=== PATIENT | female | born 1955 | race Caucasian/White ===

== ENCOUNTER 2021-12-27 22:09 | Emergency (ER) | payer MEDICARE, SELFPAY ==
--- NOTE | ~2021-12-27 | XR_ITS ---
EXAMINATION: XR CHEST CLINICAL INFORMATION: Chest pain COMPARISON: Chest x-ray 10/10/2012 TECHNIQUE: Frontal view of the chest was obtained. FINDINGS: Cardiac silhouette is normal in size. The lungs are well aerated. There is no lobar consolidation. No pleural effusion or pneumothorax. XR/XR chest 1V IMPRESSION: No acute pulmonary pathology.
--- NOTE | 2021-12-27 22:22 | ECG_ITS ---
Test Reason : CHEST PAIN Blood Pressure : / mmHG Vent. Rate : 096 BPM Atrial Rate : 096 BPM P-R Int : 132 ms QRS Dur : 072 ms QT Int : 342 ms P-R-T Axes : 070 007 057 degrees QTc Int : 432 ms Normal sinus rhythm Nonspecific ST abnormality Abnormal ECG When compared with ECG of 10-OCT-2012 19:21, No significant change was found Referred By: Generic ED Physician Electronically Signed By:FAMILIA GAINES
[2021-12-27 22:32] VITALS: BP 165/80; PULSE 101; RESP 16; TEMP 36.7; O2SAT 100; BMI 22.1
[2021-12-27 22:49] LABS: MANUAL DIFF FLAG NO
[2021-12-27 22:51] LABS: Basophils Percent Auto 0.4 % (0-2); Eosinophils Absolute Auto 0.2 X10*3/uL (0.0-0.4); Eosinophils Percent Auto 2.5 % (0-4); Hematocrit 41.9 % (37.0-47.0); Hemoglobin 13.6 g/dl (12.0-16.0); Imm Gran Abs Auto 0.02 X10*3/uL (0.00-0.03); Imm Gran Pct Auto 0.2 % (0.0-0.4); Lymphocytes Absolute Auto 3.1 X10*3/uL (1.2-4.9); Lymphocytes Percent Auto 36.8 % (20-40); Mean Corpuscular HGB Conc 32.5 g/dl (31.0-35.0); Mean Corpuscular Hemoglobin 27.6 pg (27.0-33.0); Mean Platelet Volume 8.8 fL (9.4-12.3); Monocytes Absolute Auto 0.6 X10*3/uL (0.1-1.2); Monocytes Percent Auto 7.5 % (2-11); Neutrophils Absolute Auto 4.5 x10*3/uL (2.0-8.3); Neutrophils Percent Auto 52.6 % (45-73); Platelet Count 282 X10*3/uL (160-400); Red Blood Count 4.93 X10*6/uL (4.20-5.50); Red Cell Distribution Width 14.9 % (11.0-16.0); White Blood Count 8.5 X10*3/uL (4.8-10.8)
[2021-12-27 23:03] LABS: Anion Gap 10 (12-20); Blood Urea Nitrogen 16 mg/dL (9-16); Calcium 9.5 mg/dL (8.4-10.2); Carbon Dioxide 31 mmol/L (22-29); Chloride 103 mmol/L (96-108); Estimated Glomerular Filt Rate > 60; Glucose Random 171 mg/dL (60-115); Potassium 3.3 mmol/L (3.3-5.1); Sodium 141 mmol/L (135-145)
[2021-12-27 23:09] LABS: Troponin-I High Sensitivity < 3.5 ng/L (<3.5-17.0)
--- NOTE | 2021-12-27 23:45 | ED.CHESTPAIN ---
HPI - Chest Pain General Chief Complaint: Chest Pain Stated Complaint: chest pain Time Seen by Provider: 12/27/21 23:44 Source: patient Mode of arrival: ambulatory Limitations: no limitations History of Present Illness HPI narrative: Patient is 66 years old very active thin built worse with history of hyperlipidemia no history of coronary artery disease around 20:00 while watching TV notice sharp chest pain in mid chest lasted for a few seconds no nausea no vomiting no diaphoresis no shortness of breath patient never had similar pain in the past patient walks every day and never noticed any pain in the chest never had any cardiac evaluation done in the past Related Data Previous Rx's Medication Instructions Recorded aspirin 81 mg capsule 81 mg PO DAILY #30 cap 12/28/21 Allergies Allergy/AdvReac Type Severity Reaction Status Date / Time Penicillins [PENICILLINS] Allergy Unknown RASH Unverified 05/18/20 14:55 Sulfa (Sulfonamide Allergy Rash Verified 12/27/21 22:35 Antibiotics) codeine [CODEINE] AdvReac Intermediate NAUSEA Unverified 05/18/20 14:55 Review of Systems Review of Systems: Yes all other systems are reviewed and are negative [facility] Social History Social History Advance Directives: No Physical Exam Vital Signs: Vital Signs: Last Vital Signs Temp 98.3 F 12/28/21 00:11 Pulse 86 12/28/21 01:18 Resp 12 12/28/21 00:11 BP 135/68 12/28/21 01:18 Pulse Ox 99 12/28/21 01:18 BMI result Body Mass Index 22.1 Appearance: Alert. Oriented X3. No acute distress. Eyes: No pallor or icterus s ENT: Pharynx normal. Oral Mucosa moist Neck: Normal inspection. Neck supple. CVS: Normal heart rate and rhythm. Pulses normal. Respiratory: No respiratory distress. Equal air entry bilateral, no wheezing/rales/rhonchi Abdomen: Soft and nontender. Bowel sounds are present, Skin: Skin warm and dry. Normal skin color. Normal skin turgor. Extremities: No lower extremity edema. No calf tenderness Neuro: Oriented X 3. MDM - Chest Pain MDM Narrative Medical decision making narrative: Patient atypical chest pain sharp pain in mid chest lasted only for few seconds with 2 sets of troponin negative EKG negative at this time patient does not have any chest pain will discharge patient home advised to follow with detasseler advised take baby aspirin daily Lab Data Attestation: I reviewed the patient's lab results. Result diagrams: 12/27/21 22:45 12/27/21 22:45 Labs: Lab Results 12/27/21 12/27/21 12/27/21 Range/Units 22:45 22:45 22:45 WBC 8.5 (4.8-10.8) X10*3/uL RBC 4.93 (4.20-5.50) X10*6/uL Hgb 13.6 (12.0-16.0) g/dl Hct 41.9 (37.0-47.0) % MCV 85.0 (80.0-98.0) fL MCH 27.6 (27.0-33.0) pg MCHC 32.5 (31.0-35.0) g/dl RDW 14.9 (11.0-16.0) % Plt Count 282 (160-400) X10*3/uL MPV 8.8 L (9.4-12.3) fL Immature Gran % (Auto) 0.2 (0.0-0.4) % Neut % (Auto) 52.6 (45-73) % Lymph % (Auto) 36.8 (20-40) % Buchanan % (Auto) 7.5 (2-11) % Eos % (Auto) 2.5 (0-4) % Baso % (Auto) 0.4 (0-2) % Lymph # (Auto) 3.1 (1.2-4.9) X10*3/uL Buchanan # (Auto) 0.6 (0.1-1.2) X10*3/uL Eos # (Auto) 0.2 (0.0-0.4) X10*3/uL Baso # (Auto) 0.0 (0.0-0.2) X10*3/uL Abs Immat Gran (auto) 0.02 (0.00-0.03) X10*3/uL Absolute Neuts (auto) 4.5 (2.0-8.3) x10*3/uL Absolute Nucleated RBC 0.000 (0.0-0.012) X10*3/uL Nucleated RBC % (auto) 0.0 (0.0-0.2) /100WBC Sodium 141 (135-145) mmol/L Potassium 3.3 (3.3-5.1) mmol/L Chloride 103 (96-108) mmol/L Carbon Dioxide 31 H (22-29) mmol/L Anion Gap 10 L (12-20) BUN 16 (9-16) mg/dL Creatinine 0.88 (0.5-1.4) mg/dL Estim Creat Clear Calc 55.0 Estimated GFR > 60 Random Glucose 171 H (60-115) mg/dL Calcium 9.5 (8.4-10.2) mg/dL Troponin I High Sens < 3.5 (<3.5-17.0) ng/L 12/28/21 Range/Units 00:45 WBC (4.8-10.8) X10*3/uL RBC (4.20-5.50) X10*6/uL Hgb (12.0-16.0) g/dl Hct (37.0-47.0) % MCV (80.0-98.0) fL MCH (27.0-33.0) pg MCHC (31.0-35.0) g/dl RDW (11.0-16.0) % Plt Count (160-400) X10*3/uL MPV (9.4-12.3) fL Immature Gran % (Auto) (0.0-0.4) % Neut % (Auto) (45-73) % Lymph % (Auto) (20-40) % Buchanan % (Auto) (2-11) % Eos % (Auto) (0-4) % Baso % (Auto) (0-2) % Lymph # (Auto) (1.2-4.9) X10*3/uL Buchanan # (Auto) (0.1-1.2) X10*3/uL Eos # (Auto) (0.0-0.4) X10*3/uL Baso # (Auto) (0.0-0.2) X10*3/uL Abs Immat Gran (auto) (0.00-0.03) X10*3/uL Absolute Neuts (auto) (2.0-8.3) x10*3/uL Absolute Nucleated RBC (0.0-0.012) X10*3/uL Nucleated RBC % (auto) (0.0-0.2) /100WBC Sodium (135-145) mmol/L Potassium (3.3-5.1) mmol/L Chloride (96-108) mmol/L Carbon Dioxide (22-29) mmol/L Anion Gap (12-20) BUN (9-16) mg/dL Creatinine (0.5-1.4) mg/dL Estim Creat Clear Calc Estimated GFR Random Glucose (60-115) mg/dL Calcium (8.4-10.2) mg/dL Troponin I High Sens < 3.5 (<3.5-17.0) ng/L ECG Data ECG #1: Attestation: I personally reviewed and interpreted this ECG as follows: Interpretation: Normal sinus rhythm heart rate 96 beats per minute normal interval normal axis no acute ST wave changes impression no acute ischemia Scores Heart Score History: -0- slightly suspicious ECG: -0- normal Age: -2- > or = 65 Risk factory: -1- 1 or 2 risk factors Troponin: -0- < or = normal limit Score: 3 Risk: 1.7% Discharge Plan Discharge Clinical Impression: Chest pain Patient Disposition: Home, Self-Care Instructions: Chest Pain (ED) Additional Instructions: Take baby aspirin daily Follow with PCP/cardiology for further workup including the stress and echo Report to the ER if recurrence of the chest pain /worsening of chest pain/shortness of breath Prescriptions: New aspirin 81 mg capsule 81 mg PO DAILY Qty: 30 0RF
[2021-12-28 00:11] VITALS: BP 151/60; PULSE 97; RESP 12; TEMP 36.8; O2SAT 100
[2021-12-28 01:11] LABS: Troponin-I High Sensitivity < 3.5 ng/L (<3.5-17.0)
[2021-12-28 01:18] VITALS: BP 135/68; PULSE 86; O2SAT 99
[2021-12-28 01:36] VITALS: BP 155/57; PULSE 95; RESP 18; O2SAT 100
[2021-12-28] MEDS: Aspirin 81 MG TAB.CHEW PO (01:37)
--- NOTE | 2021-12-28 01:40 | PC.NURSE ---
Pt denies any CP currently Pt medicated per OCT Pt tolerated well Will continue to monitor
== END 2021-12-28 01:41 | disposition home or self-care (01) ==
PROVIDERS: Emergency Provider Internal Medicine; PCP Internal Medicine
DX: R07.9 Chest pain, unspecified (principal)
CPT/HCPCS: 36415; 71045; 80048; 84484; 85025; 93005; 99283; 99284

== ENCOUNTER 2022-10-17 10:04 | Outpatient (REF) | payer MEDICARE, SELFPAY ==
[2022-10-17 10:24] LABS: MANUAL DIFF FLAG NO
[2022-10-17 10:55] LABS: Basophils Percent Auto 0.4 % (0-2); Eosinophils Percent Auto 0.4 % (0-4); Hematocrit 47.1 % (37.0-47.0); Hemoglobin 15.1 g/dl (12.0-16.0); Imm Gran Abs Auto 0.02 X10*3/uL (0.00-0.03); Imm Gran Pct Auto 0.2 % (0.0-0.4); Lymphocytes Absolute Auto 1.5 X10*3/uL (1.2-4.9); Lymphocytes Percent Auto 16.4 % (20-40); Mean Corpuscular HGB Conc 32.1 g/dl (31.0-35.0); Mean Corpuscular Hemoglobin 27.4 pg (27.0-33.0); Mean Corpuscular Volume 85.3 fL (80.0-98.0); Mean Platelet Volume 9.6 fL (9.4-12.3); Monocytes Absolute Auto 0.4 X10*3/uL (0.1-1.2); Monocytes Percent Auto 4.2 % (2-11); Neutrophils Absolute Auto 7.1 x10*3/uL (2.0-8.3); Neutrophils Percent Auto 78.4 % (45-73); Platelet Count 300 X10*3/uL (160-400); Red Blood Count 5.52 X10*6/uL (4.20-5.50); Red Cell Distribution Width 14.7 % (11.0-16.0)
[2022-10-17 11:17] LABS: C Reactive Protein < 0.10 mg/dL (< or = 0.50)
[2022-10-17 11:36] LABS: Erythrocyte Sedimentation Rate 2 MM/HR (0-20)
[2022-10-19 14:53] LABS: Immunoglobulin A 126 mg/dL (70-320)
[2022-10-22 12:59] LABS: Gliadin Deamidated IgA Ab <1.0 U/mL; Gliadin Deamidated IgG Ab <1.0 U/mL
[2022-10-22 13:39] LABS: Transglutaminase Ab IgG <1.0 U/mL; Transglutaminase IgA <1.0 U/mL
[2022-10-23 17:14] LABS: Endomysial IgA Antibody Negative (Negative)
== END 2022-10-17 10:05 | disposition home or self-care (01) ==
LOC: HO.LAB 10:04
PROVIDERS: PCP Internal Medicine; Visit Provider Internal Medicine
DX: R19.7 Diarrhea, unspecified (principal)
CPT/HCPCS: 36415; 82784; 85025; 85652; 86140; 86231; 86258; 86364

== ENCOUNTER 2022-10-21 11:17 | Outpatient (REF) | payer MEDICARE, SELFPAY ==
[2022-10-21 13:06] LABS: Leukocytes Stool Qualitative NEGATIVE (NEGATIVE)
[2022-10-21 13:44] LABS: CDiff Gene PCR NEGATIVE (Negative)
[2022-10-21 13:45] LABS: Adenovirus F 40/41 Not Detected (Not Detect.); Astrovirus Not Detected (Not Detect.); Campylobacter Not Detected (Not Detect.); Cryptosporidium Not Detected (Not Detect.); Cyclospora cayetanensis Not Detected (Not Detect.); E. coli EAEC Not Detected (Not Detect.); E. coli EPEC Not Detected (Not Detect.); E. coli ETEC Not Detected (Not Detect.); E. coli STEC Not Detected (Not Detect.); Entamoeba histolytica Not Detected (Not Detect.); Giardia lamblia Not Detected (Not Detect.); Norovirus GI/GII Not Detected (Not Detect.); Plesiomonas shigelloides Not Detected (Not Detect.); Rotavirus A Not Detected (Not Detect.); Salmonella Not Detected (Not Detect.); Sapovirus Not Detected (Not Detect.); Shigella sp./EIEC Not Detected (Not Detect.); Vibrio Not Detected (Not Detect.); Vibrio Cholerae Not Detected (Not Detect.); Yersinia enterocolitica Not Detected (Not Detect.)
[2022-10-27 15:24] LABS: Calprotectin, Fecal 58 mcg/g
== END 2022-10-21 11:18 | disposition home or self-care (01) ==
LOC: HO.LNP 11:17
PROVIDERS: Visit Provider Internal Medicine
DX: R19.7 Diarrhea, unspecified (principal)
CPT/HCPCS: 83993; 87493; 87507; 89055

== ENCOUNTER 2022-10-30 09:38 | Day surgery (SDC) | payer MEDICARE, SELFPAY ==
[2022-10-30 09:46] VITALS: BMI 20.2
[2022-10-30] MEDS: Lactated Ringers 1,000 ML 50 ML IVCONT (09:53)
[2022-10-30 10:05] VITALS: BP 161/71; PULSE 106; RESP 18; TEMP 36.6; O2SAT 96
[2022-10-30 11:32] VITALS: BP 97/38; PULSE 77; RESP 16; TEMP 36.3; O2SAT 99
--- NOTE | 2022-10-30 11:38 | PM.OP ---
Brief Operative Note Date of Service: 10/30/22 Pre-op diagnosis: GERD, Change in Bowela Post-op diagnosis: other (Hiatal hernia, Diverticulosis) Procedure: EGD with biopsies, Colonoscopy to the cecum and TI with biopsies Surgeon: Bryce Albert Anesthesia: MAC Was an Senior Network Administrator used for this Procedure?: No Estimated blood loss (mL): 2.0 Pathology: other (A. Descending duodenum B. EG Junction at 35cm C. Ascending colon D. Descending colon) Condition: stable Disposition: PACU
[2022-10-30 11:56] VITALS: BP 143/72; PULSE 79; RESP 18; TEMP 36.4; O2SAT 100
--- NOTE | 2022-10-30 13:36 | OP_ITS ---
SURGEON: Bryce Albert MD INDICATIONS: The patient presents for evaluation of gastroesophageal reflux and change in bowel habits. Full consent has been obtained from her for this, including risks of bleeding and perforation. PREOPERATIVE DIAGNOSIS: POSTOPERATIVE DIAGNOSIS: PROCEDURE PERFORMED: Esophagogastroduodenoscopy with biopsies, and colonoscopy to the cecum and terminal ileum with biopsies. ESTIMATED BLOOD LOSS: COMPLICATIONS: ANESTHESIA: Monitored anesthesia care. ASSISTANTS: SPECIMENS: PREOPERATIVE DIAGNOSES: Gastroesophageal reflux and change in bowel habits. POSTOPERATIVE DIAGNOSES: Gastroesophageal reflux and change in bowel habits, hiatal hernia, rule out Coello's esophagus, rule out celiac disease, rule out microscopic colitis, diverticulosis, and internal hemorrhoids. DESCRIPTION OF PROCEDURE: The patient was placed in the left lateral decubitus position. The Olympus video gastroscope was passed in the posterior oropharynx and upper esophagus under direct vision. The scope was passed slowly to the distal esophagus. The gastroesophageal junction appeared at 38 cm. There was some slight irregularity consistent with reflux and possibly small areas of Coello's mucosa. There were no lesions nor ulcerations. The scope entered into the stomach. There is a small to moderate-sized hiatal hernia. The hiatal hernia mucosa appeared normal. The scope was advanced to the pylorus, and the duodenum was cannulated to the descending portion. The duodenum including the bulb appeared normal without any mass or ulceration. Biopsies were obtained from the second and third portions of the duodenum. The scope was withdrawn back in the stomach. The gastric antrum and body appeared normal with good peristalsis. The scope was retroflexed visualizing the proximal stomach carefully, which appeared normal, without any sign of mass or ulceration. The scope was straightened and withdrawn back in the esophagus. Biopsies were obtained at the EG junction at 35 cm. Proximal to that, the esophageal mucosa appeared normal. The scope was withdrawn from the patient. She was turned around for the colonoscopy. The digital rectal exam revealed no abnormalities. The Olympus video pediatric colonoscope was entered into the rectum and advanced easily to the cecum. Once in the cecum, I did identify a normal-appearing cecal pouch with appendiceal orifice and a normal-appearing ileocecal valve. The terminal ileum was cannulated and appeared normal. The scope was withdrawn back in the colon. The entire cecum and ileocecal valve appeared normal. The scope was slowly withdrawn assessing all mucosal surfaces carefully. Preparation was excellent. I did not visualize any polyps, colitis nor angiodysplasia. Random biopsies were obtained of the ascending and descending colon. There was a mild amount of sigmoid diverticulosis. In the rectum, the scope was retroflexed visualizing internal hemorrhoids, but no other pathology. The rectal mucosa appeared normal. The scope was straightened and withdrawn from the patient. She tolerated both procedures well and was returned to the recovery area in stable condition. IMPRESSION: 1. Hiatal hernia, gastroesophageal reflux, rule out Coello's esophagus. 2. Rule out celiac disease. 3. Diverticulosis. 4. Rule out microscopic colitis. 5. Internal hemorrhoids. PLAN: The results of the biopsies will be checked. At this point, she does report that her previous issue with the change in bowel habits has completely resolved and thing seem to back to normal. In regard to the upper endoscopy findings with the hiatal hernia and some reflux, and her associated ENT symptoms, I will give her a trial of Omeprazole 20 mg daily for 1 to 2 months to see if that makes a difference for her in that regard. She will be followed up in the office. I would recommend a repeat colonoscopy in 10 years for further screening, although that point she will be just about 78 and we would need to take her clinical condition into account. She was advised not to use any aspirin nor NSAIDs for 1 week. This has been discussed with her . MD HARDEEP Juárez/HDIRAJ / [id number] MTDD
== END 2022-10-30 13:16 | disposition home or self-care (01) ==
PROVIDERS: PCP Internal Medicine; Visit Provider Internal Medicine
PROC: 0DJD8ZZ Inspection of Lower Intestinal Tract, Via Natural or Artificial Opening Endoscopic (ICD-10-PCS; CPT 45378; principal; 2022-10-30 11:10)
DX: R19.7 Diarrhea, unspecified (principal); K57.30 Diverticulosis of large intestine without perforation or abscess without bleeding; K64.8 Other hemorrhoids; K21.9 Gastro-esophageal reflux disease without esophagitis; K44.9 Diaphragmatic hernia without obstruction or gangrene; E78.00 Pure hypercholesterolemia, unspecified; Z79.899 Other long term (current) drug therapy; Z88.0 Allergy status to penicillin; Z88.2 Allergy status to sulfonamides; Z88.8 Allergy status to other drugs, medicaments and biological substances; Z87.891 Personal history of nicotine dependence
CPT/HCPCS: 45380; 43239; 88305; J2250

== ENCOUNTER 2025-04-18 10:22 | Outpatient (AMB) | payer MEDICARE, SELFPAY ==
--- OUTSIDE RECORDS SUMMARY | 2025-04-18 11:24 | XMS_ITS | Patient Health Record ---
Author Organization [facility] Address [address] [place] [id number] Care Team Providers Care Principal Network Architect Name Role Phone Lawrence Márquez MD Primary Care Provider Unavailab Gerri Diaz Unavailable [phone] Allergies Allergen (clinical drug ingredient) Drug/Non Drug Allergy documented on EMR Reaction Allergy Type Onset Date Status Penicillin Unknown Drug Allergy Active Substance with sulfonamide structure and antibacterial mechanism of action (substance) Sulfa Antibiotics Unknown Drug Allergy Active codeine Codeine Unknown Drug Allergy Active Reason For Referral No Information Medications Medication SIG (Take, Route, Frequency, Duration) Notes Start Date End Date Status Garlic Active Atorvastatin Calcium 10 MG TAKE 1 TABLET BY MOUTH EVERY DAY Oral for 90 Active Levocetirizine Dihydrochloride 5 MG TAKE 1 TABLET BY MOUTH DAILY UP TO TWICE A DAY Oral for 30 Active Cranberry Active Multivitamin Adult A ctive Immunizations Vaccine Route Administration Date Status Comme nts Influenza Unknown 05/02/2022 Administered Social History Tobacco Use: Social History Observation Description Date Details (start date - stop date) Former Smoker NA - NA Tobacco Use/Smoking Question Answer Notes Patient is a former smoker How long has it been since you last smoked? > 10 years Alcohol Screen Question Answer Notes Did you have a drink contain ing alcohol in the past year? Yes How often did you have a dri nk containing alcohol in the past year? 2 to 4 times a month (2 points) How many drinks did you have on a typical day when you were drinking in the past year? 1 or 2 drinks (0 point) How often did you have 6 or more drinks on one occasion in the past year? Never (0 point) Points 2 Interpretation Negative Section Notes: Nonsmoker; no sig alcohol Nonsmoker; no sig alcohol Nonsmoker; no sig alcohol Problems Problem Type SNOMED Code ICD Code Onset Dates Problem Status W/U Status Risk Notes Problem Diverticular disease of colon (713799536) Diverticulosis of large intestine without perforation or abscess without bleeding (K57.30) Active confirmed Problem 45012709 Heartburn (R12) Active confirmed Problem Gastroesophageal reflux disease (081423959) Gastroesophageal reflux disease (K21.9) Active confirmed Problem 28322816 Diarrhea, unspecified type (R19.7) Active confirmed Plan Of Treatment Pending Test Test Name Order Date CRP 10/17/2022 CBC w DIFF 10/17/2022 SED RATE (ESR) 10/17/2022 CELIAC PANEL #10 10/17/2022 STOOL WBC 10/17/2022 C DIFFICILE RFLX PCR 10/17/2022 CALPROTECTIN, STOOL 10/17/2022 Future Test Test Name Order Date COLONOSCOPY 10/17/2022 UPPER GI ENDOSCOPY 10/20/2022 Insurance Providers Payer Name Payer Address Payer Phone Subscriber Number Group Number Insured Name Patient Relationship to Insured Coverage Start Date Coverage End Date MEDICARE OF [place] [address] [place] [address] [phone] [id number] CRISTINA VERMA Self - patient is the insured MED[employer] ATT[employer] CLAIMS [address] [place] [address] [phone] [id number] CRISTINA VERMA Self - patient is the insured Medical (General) History Medical History History ICD Code Denies [place],DM,CVA,Lung disease,renal dise ase Allergies Hypercholesterolemia Reports a negative colonoscopy in approx 2014 Surgical History Surgery Date(Month/Year)
== END 2025-04-18 10:28 | disposition home or self-care (01) ==
LOC: HO.HMGAL 10:22
PROVIDERS: PCP Internal Medicine; Visit Provider Registered Nurse Emergency
DX: J30.89 Other allergic rhinitis (principal)
CPT/HCPCS: 95117; 95165

== ENCOUNTER 2025-05-04 10:40 | Outpatient (AMB) | payer MEDICARE, SELFPAY | END 2025-05-04 10:47 | disposition home or self-care (01) | LOC: HO.HMGAL 10:40 | PROVIDERS: PCP Internal Medicine; Visit Provider Registered Nurse Emergency | DX: J30.89 Other allergic rhinitis (principal) | CPT/HCPCS: 95117; 95165 ==

== ENCOUNTER 2025-05-16 11:11 | Outpatient (AMB) | payer MEDICARE, SELFPAY ==
--- OUTSIDE RECORDS SUMMARY | 2025-05-16 15:02 | XMS_ITS | Patient Health Record ---
Author Organization [facility] Address [address] [place] [address] Care Team Providers Care Database Operator Name Role Phone Lawrence Márquez MD Primary Care Provider Unavailab Gerri Diaz Unavailable [phone] Allergies Allergen (clinical drug ingredient) Drug/Non Drug [...] Risk Notes Problem Diverticular disease of colon (983133982) Diverticulosis of large intestine without perforation or abscess without bleeding (K57.30) Active confirmed Problem 43915328 Heartburn (R12) Active confirmed Problem Gastroesophageal reflux disease (668997321) Gastroesophageal reflux disease (K21.9) Active confirmed Problem 47072901 Diarrhea, unspecified type (R19.7) Active confirmed Plan [...] Date [place]ARE OF [place] [address] [place] [address] [id number] CRISTINA VERMA Self - patient is the insured MEDEX ATTN CLAIMS [address] [place] [address] [id number] CRISTINA VERMA Self - patient is the insured Medical (General) History Medical History History ICD Code Denies [place],DM,CVA,Lung disease,renal dise ase Allergies Hypercholesterolemia Reports a negative colonoscopy in approx 2014 Surgical History Surgery Date(Month/Year)
== END 2025-05-16 11:24 | disposition home or self-care (01) ==
LOC: HO.HMGAL 11:11
PROVIDERS: PCP Internal Medicine; Visit Provider Registered Nurse Emergency
DX: J30.89 Other allergic rhinitis (principal)
CPT/HCPCS: 95117; 95165

== ENCOUNTER 2025-06-06 11:50 | Outpatient (AMB) | payer MEDICARE, SELFPAY ==
--- OUTSIDE RECORDS SUMMARY | 2025-06-06 14:22 | XMS_ITS | Patient Health Record ---
Author Organization [facility] Address [address] [place] [id number] Care Team Providers Care Rn Corrections Name Role Phone Lawrence Márquez MD Primary Care Provider Unavailab Gerri Diaz Unavailable [phone] Allergies Allergen (clinical drug ingredient) Drug/Non Drug [...] Risk Notes Problem Diverticular disease of colon (246188178) Diverticulosis of large intestine without perforation or abscess without bleeding (K57.30) Active confirmed Problem 92128497 Heartburn (R12) Active confirmed Problem Gastroesophageal reflux disease (779369303) Gastroesophageal reflux disease (K21.9) Active confirmed Problem 14490969 Diarrhea, unspecified type (R19.7) Active confirmed Plan [...] Date [place] [address] [facility] [place] [address] [id number] CRISTINA VERMA Self - patient is the insured MEDEX ATTN CLAIMS [address] [place] [address] [id number] CRISTINA VERMA Self - patient is the insured Medical (General) History Medical History History ICD Code Denies [place],DM,CVA,Lung disease,renal dise ase Allergies Hypercholesterolemia Reports a negative colonoscopy in approx 2014 Surgical History Surgery Date(Month/Year)
== END 2025-06-06 11:53 | disposition home or self-care (01) ==
LOC: HO.HMGAL 11:50
PROVIDERS: PCP Internal Medicine; Visit Provider Registered Nurse Emergency
DX: J30.89 Other allergic rhinitis (principal)
CPT/HCPCS: 95117; 95165

== ENCOUNTER 2025-06-20 11:44 | Outpatient (AMB) | payer MEDICARE, SELFPAY | END 2025-06-20 11:45 | disposition home or self-care (01) | LOC: HO.HMGAL 11:44 | PROVIDERS: PCP Internal Medicine; Visit Provider Registered Nurse Emergency | DX: J30.89 Other allergic rhinitis (principal) | CPT/HCPCS: 95117; 95165 ==

== ENCOUNTER 2025-07-04 11:06 | Outpatient (AMB) | payer MEDICARE, SELFPAY ==
--- OUTSIDE RECORDS SUMMARY | 2025-07-04 14:04 | XMS_ITS | Patient Health Record ---
Author Organization [facility] Address [address] [place] [address] Care Team Providers Care Hogshead Head Matcher Name Role Phone Lawrence Márquez MD Primary Care Provider Unavailab Gerri Diaz Unavailable [phone] Allergies Allergen (clinical drug ingredient) Drug/Non Drug [...] TAKE 1 TABLET BY MOUTH EVERY DAY Oral; Duration: 90 Active Levocetirizine Dihydrochloride 5 MG TAKE 1 TABLET BY MOUTH DAILY UP TO TWICE A DAY Oral; Duration: 30 Active Cranberry Active Multivitamin Adult A [...] Risk Notes Problem Diverticular disease of colon (319487275) Diverticulosis of large intestine without perforation or abscess without bleeding (K57.30) Active confirmed Problem Heartburn (58275536) Heartburn (R12) Active confirmed Problem Gastroesophageal reflux disease (614309779) Gastroesophageal reflux disease (K21.9) Active confirmed Problem Diarrhea (00536608) Diarrhea, unspecified type (R19.7) Active confirmed Plan [...] Date [place] [address] [place] [address] [phone] [id number] CRISTINA VERMA Self - patient is the insured MEDEX ATTN CLAIMS [address] [place] [address] [id number] CRISTINA VERMA Self - patient is the insured Medical (General) History Medical History History ICD Code Denies [place],DM,CVA,Lung disease,renal dise ase Allergies Hypercholesterolemia Reports a negative colonoscopy in approx 2014 Surgical History Surgery Date(Month/Year)
== END 2025-07-04 11:07 | disposition home or self-care (01) ==
LOC: HO.HMGAL 11:06
PROVIDERS: PCP Internal Medicine; Visit Provider Registered Nurse Emergency
DX: J30.89 Other allergic rhinitis (principal)
CPT/HCPCS: 95117; 95165

== ENCOUNTER 2025-07-18 10:31 | Outpatient (AMB) | payer MEDICARE, SELFPAY | END 2025-07-18 10:31 | disposition home or self-care (01) | LOC: HO.HMGAL 10:31 | PROVIDERS: PCP Internal Medicine; Visit Provider Registered Nurse Emergency | DX: J30.89 Other allergic rhinitis (principal) | CPT/HCPCS: 95117; 95165 ==

== ENCOUNTER 2025-08-01 11:24 | Outpatient (AMB) | payer MEDICARE, SELFPAY | END 2025-08-01 11:25 | disposition home or self-care (01) | LOC: HO.HMGAL 11:24 | PROVIDERS: PCP Internal Medicine; Visit Provider Registered Nurse Emergency | DX: J30.89 Other allergic rhinitis (principal) | CPT/HCPCS: 95117; 95165 ==

== ENCOUNTER 2025-08-15 11:30 | Outpatient (AMB) | payer MEDICARE, SELFPAY | END 2025-08-15 11:32 | disposition home or self-care (01) | LOC: HO.HMGAL 11:30 | PROVIDERS: PCP Internal Medicine; Visit Provider Registered Nurse Emergency | DX: J30.89 Other allergic rhinitis (principal) | CPT/HCPCS: 95117; 95165 ==

== ENCOUNTER 2025-08-31 09:57 | Outpatient (AMB) | payer MEDICARE, SELFPAY ==
--- OUTSIDE RECORDS SUMMARY | 2025-08-28 23:59 | XMS_ITS | Continuity of Care Document ---
Author Organization [facility] Tom Terry Willian lt Address [address] [place] [address]- Care Team Providers Care Belt Tender Name Role Phone Lawrence Márquez MD Primary Care Physician Encounter [facility] Date(s): 07/29/25 - 08/28/[address] [facility] [address] [place] [address]- Encounter Type: Triage Allergies, Adverse Reactions, Alerts Substance Criticality Severity Reaction Reaction Severity Status codeine N/V Active penicillin RASH Active Contrast Dye HIVES Active sulfa drugs rash Active Immunizations Given and Recorded Vaccine Date Status Refusal Reason influenza virus vaccine, inactivated 05/17/24 Vitor rded influenza virus vaccine, inactivated 05/29/23 Vitor rded influenza virus vaccine, inactivated 06/06/22 Vitor rded influenza virus vaccine, inactivated 06/15/21 Vitor rded influenza virus vaccine, inactivated 04/28/20 Vitor rded influenza virus vaccine, inactivated 06/03/18 Vitor rded influenza virus vaccine, inactivated 06/18/17 Vitor rded influenza virus vaccine, inactivated 06/04/16 Vitor rded influenza virus vaccine, inactivated 08/30/13 Vitor rded influenza virus vaccine, inactivated 06/09/11 Vitor rded influenza virus vaccine, inactivated 08/05/10 Vitor rded SARS-CoV-2(COVID-19)mRNA-LNP vac([id number]) 05/17/24 Recorded SARS-CoV-2(COVID-19)mRNA-LNP vac([id number]) 06/04/23 Recorded RSV vaccine preF3, recombinant 05/29/23 Recorded [id number] 12y+ bivalent booster vax 06/06/22 Recorded SARS-CoV-2 mRNA ([id number]) vax 02/10/22 Recorded SARS-CoV-2 (COVID-19) mRNA BNT-162b2 vac 07/13/21 Recorded SARS-CoV-2 (COVID-19) mRNA BNT-162b2 vac 12/02/20 Recorded SARS-CoV-2 (COVID-19) mRNA BNT-162b2 vac 11/10/20 Recorded pneumococcal 23-valent vaccine 05/13/20 Recorded pneumococcal 13-valent vaccine 05/26/19 Recorded Influenza Virus Vaccine (oldterm) 05/26/19 Recorde d zoster vaccine, inactivated 03/07/19 Recorded zoster vaccine, inactivated 01/01/19 Recorded tetanus/diphtheria/pertussis, acel(Tdap) 10/29/17 Recorded tetanus/diphtheria/pertussis, acel(Tdap) 08/30/13 Recorded Zoster Vaccine Live 07/29/14 Recorded Medications amlodipine-valsartan 5 mg-160 mg oral tablet 1 tablet, By Mouth, Daily, # 90 tablet, 3 Refills, Maintenance, 01/10/25 8:42:00 AM EDT, [id number], 90, TAKE 1 TABLET BY MOUTH EVERY DAY, 165, cm, 08/19/24 10:43:00 EST, Height Start Date: 01/10/25 Status: Ordered Medication Dispense Status: Completed Quantity: 90.0 Unit: tablet Total Allowed Fills: 1 Fills Dispensed: 0 atorvastatin 10 mg oral tablet 1 tablet = 10 mg, By Mouth, Daily, # 90 tablet, 3 Refills, Maintenance, 05/16/25 2:47:00 PM EDT, [id number], Partial fill upon patient request if the prescription is for a schedule II opioid drug., 165, cm, 05/16/25 14:29:00 EDT, Height Start Date: 05/16/25 Status: Ordered Medication Dispense Status: Completed Quantity: 90.0 Unit: tablet Total Allowed Fills: 4 Fills Dispensed: 0 escitalopram 5 mg oral tablet 1 tablet = 5 mg, By Mouth, Daily, # 90 tablet, 3 Refills, Maintenance, 05/16/25 2:47:00 PM EDT, Tablet, [id number], Partial fill upon patient request if the prescription is for a schedule II opioid drug., 165, cm, 05/16/25 14:29:00 EDT, Height Start Date: 05/16/25 Status: Ordered Medication Dispense Status: Completed Quantity: 90.0 Unit: tablet Total Allowed Fills: 4 Fills Dispensed: 0 Fish Oil 500 mg oral capsule 2 capsule = 1,000 mg, By Mouth, 2 times a day, 0 Refills, Maintenance, 01/09/23 10:33:00 AM EDT, Capsule, Partial fill upon patient request if the prescription is for a schedule II opioid drug. Start Date: 01/09/23 Status: Ordered Medication Dispense Status: Completed Total Allowed Fills: 1 Fills Dispensed: 0 ipratropium nasal 42 mcg/inh spray 2 sprays = 84 mcg, Nares, Both, 3 times a day, # 15 mL, 0 Refills, Maintenance, 08/23/25 12:00:00 PM EST, [place], [facility]/pharmacy #[id number], Partial fill upon patient request if the prescription is for a schedule II opioid drug., 2 sprays Nares, Both 3 times a day, 165, cm, 05/16/25 14:29:00 EDT, Height Start Date: 08/23/25 Status: Ordered Medication Dispense Status: Completed Quantity: 15.0 Unit: mL Total Allowed Fills: 1 Fills Dispensed: 0 levocetirizine 5 mg oral tablet 0 Refills, Maintenance, 12/27/21 10:24:00 AM EDT, Partial fill upon patient request if the prescription is for a schedule II opioid drug. Start Date: 12/27/21 Status: Ordered Medication Dispense Status: Completed Total Allowed Fills: 1 Fills Dispensed: 0 Probiotic Formula 1 capsule, By Mouth, Daily, 0 Refills, Maintenance, 01/09/23 10:34:00 AM EDT, Partial fill upon patient request if the prescription is for a schedule II opioid drug. Start Date: 01/09/23 Status: Ordered Medication Dispense Status: Completed Total Allowed Fills: 1 Fills Dispensed: 0 traZODone 50 mg oral tablet See Instructions, 1 tablet By Mouth Daily at bedtime. May repeat after 30 minutes., # 45 tablet, Refills 11, Tot. Refills 11, Maintenance, 11/02/24 10:30:00 AM EST, Instructions Replace Required Details, Route to Pharmacy Electronically, [facility]/pharmacy #[id number], Partial fill upon patient request if the prescription is for a schedule II opioid drug., 165, cm, 08/19/24 10:43:00 EST, Height Start Date: 11/02/24 Status: Ordered Medication Dispense Status: Completed Quantity: 45.0 Unit: tablet Total Allowed Fills: 12 Fills Dispensed: 0 ZyrTEC 10 mg oral tablet 1 tablet = 10 mg, By Mouth, Daily, # 30 tablet, 0 Refills, Maintenance, 01/21/24 10:21:00 AM EDT, Tablet, Partial fill upon patient request if the prescription is for a schedule II opioid drug. Start Date: 01/21/24 Status: Ordered Medication Dispense Status: Completed Quantity: 30.0 Unit: tablet Total Allowed Fills: 1 Fills Dispensed: 0 Problem List Condition Confirmation Course Effective Dates Status H ealth Status Informant Allergic rhinitis Confirmed Active Overactive bladder Confirmed Active Hematuria Confirmed Active Renal cyst Confirmed Active Diverticulosis Confirmed Active Elevated blood pressure reading without diagnosis of hypertension Confirmed Active Hiatal hernia with GERD Confirmed Active H/O colonoscopy Confirmed Active Hydronephrosis Confirmed 08/29/16 Active Hyperlipidemia Confirmed Active Impaired fasting glucose Confirmed Active Frequency of micturition Confirmed 07/15/16 Active Insomnia Confirmed Active Internal hemorrhoids Confirmed Active Pulmonary nodule Confirmed Active Microhematuria Confirmed Active Vitamin D deficiency Confirmed Active Social History Social History Type Response Smoking Status Former smoker, quit more than 30 days ago; Other: quit 11/12/1982; entered on: 12/24/18 Sex Sex Representation Female (finding) Patient Care team information Care Team Personnel Name: Lawrence Márquez MD Position: S Physician - Primary Care Member Role: PCP Address: [address] [place] [id number] Telecom: Care Team Related Persons Name: GERRI VERMA Insurance Providers Guarantor name: CRISTINA VERMA Health Plan Information #: 1 Payer: MEDICARE B Payer Identifier: NA Member Number: [id number] Group Number: NA Subscriber Identifier: NA Relationship to Subscriber: self Coverage Type: NA Coverage Verification Date: NA Telecom: NA Address: Health Plan Information #: 2 Payer: MEDEX SECONDARY ONLY Payer Identifier: NA Member Number: [id number] Group Number: NA Subscriber Identifier: NA Relationship to Subscriber: self Coverage Type: Medicare Other Coverage Verification Date: NA Telecom: NA Address:
--- OUTSIDE RECORDS SUMMARY | 2025-08-31 10:48 | XMS_ITS | Patient Health Record ---
Author Organization [facility] Address [address] [place] [address] Care Team Providers Care Avionics Mechanic Name Role Phone Lawrence Márquez MD Primary Care Provider Unavailab Gerri Diaz Unavailable [phone] Allergies Allergen (clinical drug ingredient) Drug/Non Drug Allergy documented on EMR Reaction Allergy Type Onset Date Status codeine Codeine Unknown Drug Allergy Active Substance with sulfonamide structure and antibacterial mechanism of action (substance) Sulfa Antibiotics Unknown Drug Allergy Active Penicillin Unknown Drug Allergy Active Reason For Referral No Information Medications Medication SIG (Take, Route, Frequency, Duration) Notes Start Date End Date Status Garlic Active Atorvastatin Calcium 10 MG Tablet TAKE 1 TABLET BY MOUTH EVERY DAY Oral; Duration: 90 Active Levocetirizine Dihydrochloride 5 MG Tablet TAKE 1 TABLET BY MOUTH DAILY UP TO TWICE A DAY Oral; Duration: 30 Active Cranberry Active Multivitamin Adult A ctive Immunizations Vaccine Route Administration Date Status Comme nts Influenza Unknown 05/02/2022 Administered Social History Tobacco Use: Social History Observation Description Date Details (start date - stop date) Former Smoker NA - NA Social History Drugs/Alcohol: Social Info Question Answer Notes Alcohol Screen Did you have a drink containing alcohol in the past year? Yes How often did you have a drink containing alcohol in the past year? 2 to 4 times a month (2 points) How many drinks did you have on a typical day when you were drinking in the past year? 1 or 2 drinks (0 point) How often did you have 6 or more drinks on one occasion in the past year? Never (0 point) Points 2 Interpretation Negative Tobacco Use: Social Info Question Answer Notes Tobacco Use/Smoking Patient is a former smoker How long has it been since you last smoked? > 10 years Additional Details Category Social Info Options Details Miscellaneous: Marital status: Occupation: retired Section Notes: Nonsmoker; no sig alcohol Nonsmoker; no sig alcohol Nonsmoker; no sig alcohol Problems Problem Type SNOMED Code ICD Code Onset Dates Problem Status W/U Status Risk Notes Problem Diverticular disease of colon (624900934) Diverticulosis of large intestine without perforation or abscess without bleeding (K57.30) Active confirmed Problem Heartburn (86258929) Heartburn (R12) Active confirmed Problem Gastroesophageal reflux disease (602918463) Gastroesophageal reflux disease (K21.9) Active confirmed Problem Diarrhea (69649154) Diarrhea, unspecified type (R19.7) Active confirmed Plan [...] MEDICARE OF [place] [address] [facility] [address] [id number] CRISTINA VERMA Self - patient is the insured [employer] ATT[employer] CLAIMS [address] [place] [address] [phone] [id number] CRISTINA VERMA Self - patient is the insured Medical (General) History Medical History History ICD Code Denies RI,DM,CVA,Lung disease,renal dise ase Allergies Hypercholesterolemia Reports a negative colonoscopy in approx 2014 Surgical History Surgery Date(Month/Year)
== END 2025-08-31 09:58 | disposition home or self-care (01) ==
LOC: HO.HMGAL 09:57
PROVIDERS: PCP Internal Medicine; Visit Provider Registered Nurse Emergency
DX: J30.89 Other allergic rhinitis (principal)
CPT/HCPCS: 95117; 95165